=== PATIENT | female | born 1990 | race Caucasian/White ===

== ENCOUNTER 2016-02-15 20:30 | Emergency (ER) | payer OTHER ==
[2016-02-16] MEDS ORDERED: AMOXICILLIN TR/POT CLAVULANATE 500-125 MG TAB PO ONE (02:04)
--- NOTE | 2016-02-16 02:06 | ER Document Report ---
ED General - General Chief Complaint: Dog Bite Stated Complaint: DOG BITE Notes: Patient is a 25-year-old female who presents after being bitten multiple times by her dog just prior to arrival. States that she was rubbing the dog on his belly and he suddenly began to bite her arm and face. No prior history of this dog demonstrate any aggression to the patient in the past. Does describe a dull , throbbing pain to the affected areas. Nothing improves or worsens the pain. She had a tetanus shot update one year ago. The dog has all vaccinations including rabies vaccine. I have not seen her primary care physician regarding today's concerns. TRAVEL OUTSIDE OF THE [place] IN LAST 30 DAYS: No - Related Data Allergies/Adverse Reactions: No Known Allergies Allergy (Verified 11/19/14 03:13) Past Medical History - General Information source: Patient - Social History Smoking Status: Never Smoker Chew tobacco use (# tins/day): No Frequency of alcohol use: None Drug Abuse: None Lives with: Spouse/Significant other Family History: Reviewed & Not Pertinent Patient has suicidal ideation: No Patient has homicidal ideation: No Past Surgical History: Reports: Hx Orthopedic Surgery - rt hip arthro 2013 - Immunizations Hx Diphtheria, Pertussis, Tetanus Vaccination: Yes Review of Systems - Review of Systems Notes: Constitutional: Negative for fever. HENT: Negative for sore throat. Eyes: Negative for visual changes. Cardiovascular: Negative for chest pain. Respiratory: Negative for shortness of breath. Gastrointestinal: Negative for abdominal pain, vomiting or diarrhea. Genitourinary: Negative for dysuria. Musculoskeletal: Negative for back pain. Skin: Is of her multiple lacerations Neurological: Negative for headaches, weakness or numbness. 10 point ROS negative except as marked above and in HPI. Physical Exam - Vital signs Vitals: Pulse Resp BP Pulse Ox 82 14 133/76 H 98 02/16/16 03:07 02/16/16 03:07 02/16/16 03:07 02/16/16 03:07 Interpretation: Normal Notes: PHYSICAL EXAMINATION: GENERAL: Well-appearing, well-nourished and in no acute distress. HEAD: Atraumatic, normocephalic. EYES: sclera anicteric, conjunctiva are normal. ENT: Moist mucous membranes. NECK: Normal range of motion LUNGS: Normal work of breathing HEART: 2+ radial pulses bilaterally EXTREMITIES: no pitting or edema. No cyanosis. NEUROLOGICAL: No focal neurological deficits. Moves all extremities spontaneously and on command. PSYCH: Normal mood, normal affect. SKIN: Warm, Dry, normal turgor, multiple lacerations to the left upper extremity as well as the right side of face Course - Re-evaluation Re-evalutation: 02/16/16 05:19 Patient presents multiple bug bites on her left upper extremity as well as her face. This was her dog and they are certain that the dog has all vaccinations. The patient is already up-to-date on her tetanus immunizations. She will be started on Augmentin for prophylaxis. These wounds up and cleaned and irrigated as well as stress but not sutured secondary to risk for infection.At this time will discharge with return precautions and follow-up recommendations. Verbal discharge instructions given a the bedside and opportunity for questions given. Medication warnings reviewed. Patient is in agreement with this plan and has verbalized understanding of return precautions and the need for primary care follow-up in the next 24-72 hours. - Vital Signs Vital signs: Temp Pulse Resp BP Pulse Ox 82 14 133/76 H 98 02/16/16 03:07 02/16/16 03:07 02/16/16 03:07 02/16/16 03:07 Discharge - Discharge Clinical Impression: Dog bite Qualifiers: Encounter type: initial encounter Qualified Code(s): W54.0XXA - Bitten by dog, initial encounter Condition: Good Disposition: HOME, SELF-CARE Additional Instructions: Please monitor very closely for any signs of infection from your dog bite including spreading redness from the area, pus from the wound, or worsening pain. Clean the area twice daily with soap and water and then apply topical antibiotic ointment. Please take all the antibiotics that you were prescribed until they are gone. Follow-up with your primary care physician as needed. Prescriptions: Amox Tr/Potassium Clavulanate [Augmentin 875-125 Tablet] 1 tab PO BID 5 Days Referrals: TOM FARAH PA [Primary Care Provider] - Follow up as needed
[2016-02-16 03:13] VITALS: BP 133/76
== END 2016-02-16 03:13 | disposition home or self-care (01) ==
LOC: ER 20:30
DX: S41.159A Open bite of unspecified upper arm, initial encounter (principal); S01.85XA Open bite of other part of head, initial encounter; W54.0XXA Bitten by dog, initial encounter
CPT/HCPCS: 99283